=== PATIENT | female | born 1965 | race Caucasian/White ===

== ENCOUNTER 2021-06-13 21:51 | Inpatient (IN) | payer MEDICARE, OTHER ==
[~2021-06-13] VITALS: Ht 167.6 cm; Wt 106.6 kg
[2021-06-13] MEDS ORDERED: LOSA1TAB36 PO (22:29)
[2021-06-13 22:30] VITALS: BP 123/70
[2021-06-13] MEDS ORDERED: HYDR50TA61 PO (22:30)
[2021-06-13] MEDS ORDERED: LORA-258 PO (22:31)
[2021-06-13] MEDS ORDERED: MAG HYDROX/AL HYDROX/SIMETH 30 ML UDC PO PRN (23:00)
[2021-06-13] MEDS ORDERED: MAGNESIUM HYDROXIDE 30 ML UDC PO PRN (23:00)
[2021-06-13] MEDS ORDERED: ACETAMINOPHEN 325 MG TABLET PO PRN (23:00)
[2021-06-13] MEDS ORDERED: BLOOD SUGAR DIAGNOSTIC 1 EACH STRIP IN ONE (23:00)
--- NOTE | 2021-06-14 00:06 | NUR ---
ADMISSION NOTES: ADMITTED THIS 55Y/O FEMALE PATIENT ADMIT FROM [facility]/ INTIALLY FROM HOME , [facility]ITTED TO [facility] ON [address], PER HOLD BE UNABLE TO TAKE CARE OF YOUR OWN FOOD CLOTHING OR SKILLED NURSING, AND YOU ARE HAVING PARANOID THOUGHTS PEOPLE ARE STALKING ,UPON FACE TO FACE ASSESSMENT PATIENT IS A&O X ,3, 4 PARANOID ,DISHELVED , DISORGNIZED, COOPERTIVE , DENIES SI /HI AT THIS TIME, PT. IS POOR HISTORIAN, POOR INSIGHT ,POOR JUDGEMENT , BOTH MD AWARE AND NOTIFIED OF THE ADMISSION, BELONGINGS CONTRABAND WERE DONE , NURSING ASSESSMENT DONE ,PT. RIGHTS DISCUSS BY FURNACE CHARGER , PROVIDE THE PT. WITH HANDBOOK, AND MEDICATIONS GUIDE, ENVIRONMENTAL SAFETY CHECK DONE, ENCOURAGED PT. VERBALIZED ANY FEELING CONCERN TO STAFF, ORIENT TO UNIT POLICY, NO ACUTE DISTRESS NOTED,VITAL SIGNS WNL ,DENIES ANY PAIN AT THIS TIME,WILL CONTINUE TO MONITOR FOR Q15 SAFETY AND BEHAVIOR.
[2021-06-14 07:05] LABS: BASOPHILS % (AUTO) 0.4 % (0.0-2.0); EOSINOPHILS % (AUTO) 1.5 % (0.0-6.0); HEMATOCRIT 41 % (33-45); HEMOGLOBIN 13.7 g/dL (11.5-14.8); LYMPHOCYTES # (AUTO) 2.3 K/uL (0.8-4.8); LYMPHOCYTES % (AUTO) 24.3 % (20.0-44.0); MEAN CORPUSCULAR HGB CONC 33 g/dl (31.0-36.0); MEAN CORPUSCULAR VOLUME 82 fL (82-100); MONOCYTES # (AUTO) 0.7 K/uL (0.1-1.30); MONOCYTES % (AUTO) 7.9 % (2.0-12.0); NEUTROPHILS # (AUTO) 6.2 K/uL (1.8-8.9); NEUTROPHILS % (AUTO) 65.9 % (43.0-81.0); PLATELET COUNT (AUTO) 333 K/uL (150-450); RED BLOOD CELL COUNT(AUTO) 5.04 MIL/uL (4.0-5.2); WHITE BLOOD COUNT (AUTO) 9.4 K/uL (4.3-11.0)
[2021-06-14 07:17] LABS: CREATININE 0.8 mg/dL (0.6-1.3); POTASSIUM 4.4 mmol/L (3.5-5.1)
[2021-06-14 08:00] VITALS: BP 140/89
[2021-06-14] MEDS: LOSARTAN/HCTZ 50-12.5MG/ 1 EA TABLET PO SCH (09:22)
[2021-06-14 16:00] VITALS: BP 140/93
[2021-06-14 20:02] VITALS: BP 143/89
[2021-06-14 20:41] LABS: BILIRUBIN,URINE NEGATIVE (NEGATIVE); COLOR,URINE YELLOW (YELLOW); LEUKOCYTE ESTERASE ,URINE NEGATIVE (NEGATIVE); NITRITE, URINE NEGATIVE (NEGATIVE); PROTEIN,URINE NEGATIVE (NEGATIVE); UGLUCOSE NEGATIVE (NEGATIVE); UROBILINOGEN,URINE 0.2 EU/dL (0.2)
[2021-06-14 21:11] LABS: BACTERIA,URINE None seen /HPF (None Seen); SQUAMOUS EPITHELIAL CELL,UR 0-2 /HPF (None Seen); WBC,URINE 0-2 /HPF (0-3)
[2021-06-14] MEDS: ARIPIPRAZOLE 5 MG TABLET PO SCH (21:15)
[2021-06-14 22:18] VITALS: BP 132/75
[2021-06-15] MEDS: clonazePAM 0.5 MG TABLET PO PRN ×2 (01:31→22:44)
--- NOTE | 2021-06-15 01:36 | NUR ---
RN NOTE: ANXIETY PATIENT IS C/O RESTLESSNESS & ANXIETY, REQUESTING FOR ANTIANXIETY. PRN KLONOPIN 0.5 MG 1 TAB PO ADMINISTERED. WILL CONTINUE TO MONITOR.
[2021-06-15 08:00] VITALS: BP 162/84
[2021-06-15] MEDS: LOSARTAN/HCTZ 50-12.5MG/ 1 EA TABLET PO SCH (08:42)
[2021-06-15] MEDS: CARVEDILOL 6.25 MG TABLET PO SCH ×2 (09:35→16:18)
[2021-06-15 16:00] VITALS: BP 133/97
[2021-06-15 20:00] VITALS: BP_SYST 140; BP_SYST 148; BP_DIAS 103; BP_DIAS 78
[2021-06-15] MEDS: ARIPIPRAZOLE 5 MG TABLET PO SCH (21:14)
[2021-06-16 08:00] VITALS: BP 130/101
[2021-06-16] MEDS: CARVEDILOL 6.25 MG TABLET PO SCH ×2 (08:43→16:09)
[2021-06-16] MEDS: LOSARTAN/HCTZ 50-12.5MG/ 1 EA TABLET PO SCH (08:43)
--- NOTE | 2021-06-16 15:55 | NUR ---
Point of Contact: The pt. gave SW verbal consent to call the mother, Ludmila Beltran [phone]. SW called Ludmila to gather collateral information and discuss D/C plan. Call went to voicemail and SW left call back number. SW will be available as needed.
--- NOTE | 2021-06-16 15:55 | NUR ---
Initial Discharge Plan: The pt. resides at home alone [[address] [place]; [phone]] and is independent with her ADL's. Patient states she would like to return there when ready for discharge. SW will continue to collaborate with IDT to ensure safe & proper D/C planning.
[2021-06-16 16:20] VITALS: BP 148/87
[2021-06-16] MEDS: ARIPIPRAZOLE 5 MG TABLET PO SCH (21:21)
[2021-06-16] MEDS: TEMAZEPAM 7.5 MG CAPSULE PO PRN (22:36)
--- NOTE | 2021-06-16 22:36 | NUR ---
RN NOTE: INSOMNIA PT C/O INSOMNIA. REQUESTING SLEEP AIDE. RESTORIL 7.5MG PO PRN ADMINISTERED. WILL CONT TO MONITOR EFFECTIVENESS OF PRN MEDICATION AND NEED FOR FURTHER TREATMENT
[2021-06-17 08:00] VITALS: BP 153/87
[2021-06-17] MEDS: CARVEDILOL 6.25 MG TABLET PO SCH ×2 (08:20→16:34)
[2021-06-17] MEDS: LOSARTAN/HCTZ 50-12.5MG/ 1 EA TABLET PO SCH (08:20)
[2021-06-17 16:00] VITALS: BP 134/88
[2021-06-17 20:00] VITALS: BP 131/98
[2021-06-17 20:18] VITALS: BP 131/98
[2021-06-17] MEDS: ARIPIPRAZOLE 5 MG TABLET PO SCH (21:32)
[2021-06-17] MEDS: TEMAZEPAM 7.5 MG CAPSULE PO PRN (22:42)
--- NOTE | 2021-06-17 22:45 | NUR ---
RN NOTE: INSOMNIA PATIENT VERBALIZED THAT SHE IS UNABLE TO SLEEP & REQUESTED TO TAKE SLEEPING MEDICINE. PRN RESTORIL 7.5 MG 1 CAP PO ADMINISTERED. WILL CONTINUE TO MONITOR
[2021-06-18 09:09] VITALS: BP 116/95
[2021-06-18] MEDS: LOSARTAN/HCTZ 50-12.5MG/ 1 EA TABLET PO SCH (09:17)
[2021-06-18] MEDS: CARVEDILOL 6.25 MG TABLET PO SCH ×2 (09:17→17:36)
[2021-06-18 16:33] VITALS: BP 140/97
[2021-06-18 20:00] VITALS: BP 130/86
[2021-06-18 20:29] VITALS: BP 130/86
[2021-06-18] MEDS: ARIPIPRAZOLE 5 MG TABLET PO SCH (21:29)
[2021-06-18] MEDS: clonazePAM 0.5 MG TABLET PO PRN (22:17)
--- NOTE | 2021-06-18 22:20 | NUR ---
RN NOTES PATIENT ASKED FOR KLONOPIN, KLONOPIN 0.5MG PO GIVEN ORDERED
[2021-06-19 08:00] VITALS: BP 145/62
[2021-06-19] MEDS: CARVEDILOL 6.25 MG TABLET PO SCH ×2 (08:48→16:40)
[2021-06-19] MEDS: LOSARTAN/HCTZ 50-12.5MG/ 1 EA TABLET PO SCH (08:49)
--- NOTE | 2021-06-19 14:40 | NUR ---
Probable cause hearing: Pts 5250 hold was upheld on the grounds of gravely disabled.
--- NOTE | 2021-06-19 14:51 | NUR ---
Point of contact: SW contacted pts mother Ludmila Beltran ([phone]) and informed her that pt is ready for discharge tomorrow. Pts mother reports that she will pick pt up at 2:00 pm.
[2021-06-19 16:00] VITALS: BP 134/68
[2021-06-19 20:00] VITALS: BP 152/82
[2021-06-19] MEDS: ARIPIPRAZOLE 5 MG TABLET PO SCH (21:33)
[2021-06-19] MEDS: TEMAZEPAM 7.5 MG CAPSULE PO PRN (21:41)
--- NOTE | 2021-06-19 21:41 | NUR ---
[facility] RN NOTES C/O INSOMNIA,RESTORIL 7.5 MG PO GIVEN PER PATIENT REQUEST.
[2021-06-20 08:00] VITALS: BP 146/83
[2021-06-20] MEDS: CARVEDILOL 6.25 MG TABLET PO SCH (08:03)
[2021-06-20 08:04] VITALS: BP 146/83
[2021-06-20] MEDS: LOSARTAN/HCTZ 50-12.5MG/ 1 EA TABLET PO SCH (08:04)
--- NOTE | 2021-06-20 10:06 | NUR ---
RN-NOTES RECEIVED T.O DISCHARGE ORDER FROM DR. ENG. NOTED AND CARRIED OUT.
--- NOTE | 2021-06-20 14:06 | NUR ---
Discharge: Pt was discharged to home located on [address] [facility] [address] [place] [address]; [phone]. Pts mother Ludmila Beltran ([phone]) picked pt up at 2:00pm. Upon discharge, pt denied suicidal/homicidal ideations and denied visual/auditory hallucinations. Pt appears to be alert and oriented x3 (person, place and time). Pt appears to be in an anxious mood with a guarded affect. Pt appears to be well groomed and appropriately dressed. Pt will be under the care of senior statistician Dr. Bright located on [address] [facility] [address]. Pts mother reports that she will schedule the appointment with the senior statistician. Pt was referred to [facility] located on [address] [facility] [address]; ([phone]) for psychiatric services. The multidisciplinary exit care form were done, printed, signed, and given to the patient.
--- NOTE | 2021-06-20 14:23 | NUR ---
RN-NOTES RECEIVED T.O DISCHARGE ORDER FROM DR. ENG ( PSYCIATRIST) / DR. CORDOVA ( [employer]) ALSO MADE AWARE WITH ORDERS. PATIENT WAS DISCHARGE TO HOME . PATIENT DID NOT VERBALIZE SI/HI,DENIES VISUAL/AUDITORY HALLUCINATIONS AT THE TIME OF DISCHARGE. ALL DISCHARGED MEDICATIONS WAS REVIEWED WITH THE PATIENT WITH UNDERSTANDING. INTRUSTED PATIENT TO FOLLOW UP WITH PCP IN A WEEK OR NEEDED AND CALL 911 OR GO TO THE NEAREST EMERGENCY FACILITY IN CASE OF EMERGENCY. 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 PATIENT LEFT THE UNIT IN STABLE CONDITION A/O X4 AMBULATORY WITH STEADY GAIT. ALL BELONGINGS WAS GIVEN BACK TO HER INCLUDING DISCHARGE PAPERS AND RX. PATIENT WAS ACCOMPANIED BY ONE COMMUNITY NURSE IN THE LOBBY FOR SAFETY. MASK WAS PROVIDED
== END 2021-06-20 14:00 | disposition home or self-care (01) | DRG 885 ==
LOC: GPS 21:51
PROVIDERS: ADMIT Nurse Practitioner Acute Care; ATTEND Family Medicine
DX: F31.9 Bipolar disorder, unspecified (principal); I11.0 Hypertensive heart disease with heart failure; G35 Multiple sclerosis; F12.90 Cannabis use, unspecified, uncomplicated; F29 Unspecified psychosis not due to a substance or known physiological condition; I50.9 Heart failure, unspecified; Z87.891 Personal history of nicotine dependence; Z79.899 Other long term (current) drug therapy; E66.01 Morbid (severe) obesity due to excess calories; Z68.38 Body mass index [BMI] 38.0-38.9, adult; Z73.6 Limitation of activities due to disability
CPT/HCPCS: 36415; 80048-TC; 80061-TC; 81001; 82962-TC; 85025-TC; 87081-TC